=== PATIENT | female | born 1960 | race Caucasian/White ===

== ENCOUNTER → 2017-05-03 | Outpatient (CLI) | payer OTHER ==
[~2017-05-03] MED LIST: ATOR1TAB19 PO; BIOT50004 PO; CITA10SO PO; LOSA50TA20 PO; MULTLIQ7 PO; PANT40TA2 PO; PREM0.45 PO
--- NOTE | 2017-05-03 11:15 | REPMRS ---
Patient History The patient states she had a clinical breast exam in March 2017. Patient is postmenopausal. No known family history of cancer. Benign ultrasound-guided core biopsy of the left breast, July 06, 2008. Taking estrogen for 6 years. Digital Mammo Screening Bilat: May 03, 2017 - Exam #: [id number] Bilateral CC and MLO view(s) were taken. Technologist: Maida Ludwig, Technologist Prior study comparison: April 28, 2016, bilateral digital mammo screening bilat performed at [facility]. April 27, 2015, bilateral digital mammo screening bilat performed at [facility]. FINDINGS: The breast tissue is heterogeneously dense. This may lower the sensitivity of mammography. There is a needle biopsy marker clip in the left breast. There is a moderate amount of heterogeneously dense fibroglandular tissue which is fairly symmetric. There is no interval development of dominant mass, architectural distortion, or clustered microcalcification typical of malignancy. There has been no change in the appearance of the mammogram from the prior studies. ASSESSMENT: BI-RADS/ACR category 2 mammogram. Benign finding(s). Recommendation Routine screening mammogram of both breasts in 1 year (for women over age 40). This mammogram was interpreted with the aid of an FDA-approved computer-aided dectection system. Electronically Signed By: Diogenes Canela MD 05/03/17 [id number]
== END ==
LOC: M RAD 09:27
PROVIDERS: ATTEND Nurse Practitioner Women's Health
DX: Z12.31 Encounter for screening mammogram for malignant neoplasm of breast (principal)

== ENCOUNTER → 2018-04-29 | Outpatient (CLI) | payer OTHER | LOC: M LRY 12:17 | DX: R50.9 Fever, unspecified (principal) | CPT/HCPCS: 71046 ==

== ENCOUNTER → 2018-04-29 | Outpatient (REF) | payer OTHER | LOC: M SFHCLERA 12:15 | DX: R50.9 Fever, unspecified (principal) ==

== ENCOUNTER → 2020-10-09 | Outpatient (CLI) | payer OTHER ==
[~2020-10-09] MED LIST changes: +BLAC1CAP2 PO; -LOSA50TA20 PO; +LOSA50TA88 PO; +NO ITAB PO; -PANT40TA2 PO; +PANT40TA29 PO; +VITA-243 PO
== END ==
LOC: M LABSMTC 09:36
PROVIDERS: ATTEND Anesthesiology
DX: Z01.818 Encounter for other preprocedural examination (principal); Z20.828 Contact with and (suspected) exposure to other viral communicable diseases

== ENCOUNTER 2020-10-14 08:12 | Day surgery (SDC) | payer OTHER ==
[~2020-10-14] VITALS: Ht 170.2 cm; Wt 68.9 kg
[~2020-10-14 08:12] MED LIST changes: +NS 1,000 ML IV ONE
[2020-10-14] MEDS ORDERED: propofoL 500 MG/50 ML VIAL As Ordered ONE (09:32)
[2020-10-14] MEDS ORDERED: LIDOCAINE 2% 100MG/5ML SDV (FOR ANES.) As Ordered ONE (09:32)
--- NOTE | 2020-10-14 10:02 | ROOR ---
Patient Name: Diana Higginbotham Procedure Date: 10/14/2020 9:31 AM Date of : 1960 Age: 60 Room: [facility] Gender: Female Note Status: Finalized Procedure: Colonoscopy Indications: Screening patient at increased risk: Family history of 1st-degree relative with colorectal cancer at age 60 years (or older) Providers: Yordan Breen Jr, MD Referring MD: Messi Kerr MD Requesting Provider: Medicines: Propofol per Anesthesia Complications: No immediate complications. Procedure: Pre-Anesthesia Assessment: - Prior to the procedure, a History and Physical was performed, and patient medications and allergies were reviewed. The patient is competent. The risks and benefits of the procedure and the sedation options and risks were discussed with the patient. All questions were answered and informed consent was obtained. Patient identification and proposed procedure were verified by the physician and the nurse in the pre-procedure area and in the procedure room. Mental Status Examination: alert and oriented. Airway Examination: normal oropharyngeal airway and neck mobility. Respiratory Examination: clear to auscultation. CV Examination: normal. ASA Grade Assessment: II - A patient with mild systemic disease. After reviewing the risks and benefits, the patient was deemed in satisfactory condition to undergo the procedure. The anesthesia plan was to use moderate sedation / analgesia (conscious sedation). Immediately prior to administration of medications, the patient was re-assessed for adequacy to receive sedatives. The heart rate, respiratory rate, oxygen saturations, blood pressure, adequacy of pulmonary ventilation, and response to care were monitored throughout the procedure. The physical status of the patient was re-assessed after the procedure. The Colonoscope was introduced through the anus and advanced to the cecum, identified by appendiceal orifice and ileocecal valve. The colonoscopy was performed without difficulty. The patient tolerated the procedure well. The quality of the bowel preparation was adequate and fair. Findings: The rectum, recto-sigmoid colon, descending colon, ascending colon, cecum, appendiceal orifice and ileocecal valve appeared normal. A few small-mouthed diverticula were found in the sigmoid colon. A small polyp was found in the transverse colon. The polyp was sessile. The polyp was removed with a cold snare. Resection and retrieval were complete. Impression: - Preparation of the colon was fair. - The rectum, recto-sigmoid colon, descending colon, ascending colon, cecum, appendiceal orifice and ileocecal valve are normal. - Diverticulosis in the sigmoid colon. - One small polyp in the transverse colon, removed with a cold snare. Resected and retrieved. Recommendation: - Discharge patient to home (ambulatory). - Repeat colonoscopy in 5 years for surveillance. Procedure Code(s): --- Professional --- 53643, Colonoscopy, flexible; with removal of tumor(s), polyp(s), or other lesion(s) by snare technique Diagnosis Code(s): --- Professional --- Z80.0, Family history of malignant neoplasm of digestive organs K63.5, Polyp of colon K57.30, Diverticulosis of large intestine without perforation or abscess without bleeding CPT copyright 2019 [employer]. All rights reserved. The codes documented in this report are preliminary and upon medical insurance coder review may be revised to meet current compliance requirements. Yordan Breen MD Yordan Breen Jr, MD 10/14/2020 10:02:35 AM Electronically signed by Yordan Breen Jr, MD Number of Addenda: 0 Note Initiated On: 10/14/2020 9:31 AM Estimated Blood Loss: Estimated blood loss: none. Estimated blood loss: none.
[2020-10-14 10:20] VITALS: BP 144/80
== END 2020-10-14 10:33 | disposition home or self-care (01) ==
LOC: M OPP 08:12
PROVIDERS: ATTEND Surgery
DX: Z12.11 Encounter for screening for malignant neoplasm of colon (principal); Z80.0 Family history of malignant neoplasm of digestive organs; K63.5 Polyp of colon; K57.30 Diverticulosis of large intestine without perforation or abscess without bleeding

== ENCOUNTER 2025-02-18 11:06 | Day surgery (SDC) | payer MEDICARE ==
[~2025-02-18] VITALS: Ht 170.2 cm; Wt 74.6 kg
[~2025-02-18 11:06] MED LIST changes: -BIOT50004 PO; +BIOT5CAP8 PO; +CALC600T60 PO; +CITA10TA7 PO; +COQ150CH PO; +LOSA50TA28 PO; -LOSA50TA88 PO; -NS 1,000 ML IV ONE; +VALS1TAB66 PO; +ZINC50TA4 PO
[2025-02-18] MEDS ORDERED: LIDOCAINE 2% 100MG/5ML SDV (FOR ANES.) As Ordered ONE (13:35)
[2025-02-18] MEDS ORDERED: propofoL 200 MG/20 ML VIAL As Ordered ONE (13:36)
[2025-02-18 14:34] VITALS: TEMP 99.5
[2025-02-18 14:55] VITALS: BP 130/81; O2SAT 93
== END 2025-02-18 14:58 | disposition home or self-care (01) ==
LOC: M OPP 11:06
PROVIDERS: ATTEND Surgery
DX: D12.6 Benign neoplasm of colon, unspecified (principal); K57.30 Diverticulosis of large intestine without perforation or abscess without bleeding; Z80.0 Family history of malignant neoplasm of digestive organs; Z86.0100 Personal history of colon polyps, unspecified; Z79.899 Other long term (current) drug therapy